=== PATIENT | female | born 1945 | race Two or more races ===

== ENCOUNTER 2021-01-12 12:01 | Outpatient (CLI) | payer OTHER | END 2021-01-12 12:08 | disposition home or self-care (01) | LOC: RAD 12:01 | PROVIDERS: ATTEND Ophthalmology | DX: Z98.41 Cataract extraction status, right eye (principal) ==

== ENCOUNTER 2024-09-24 11:09 | Outpatient (CLI) | payer OTHER | END 2024-09-24 11:14 | disposition home or self-care (01) | LOC: RAD 11:09 | PROVIDERS: ATTEND Orthopaedic Surgery | DX: S72.141D Displaced intertrochanteric fracture of right femur, subsequent encounter for closed fracture with routine healing (principal); X58.XXXD Exposure to other specified factors, subsequent encounter ==

== ENCOUNTER 2024-11-02 14:06 | Outpatient (CLI) | payer OTHER | END 2024-11-02 14:09 | disposition home or self-care (01) | LOC: RAD 14:06 | PROVIDERS: ATTEND Orthopaedic Surgery | DX: S72.141D Displaced intertrochanteric fracture of right femur, subsequent encounter for closed fracture with routine healing (principal) ==